=== PATIENT | male | born 1970 ===

== ENCOUNTER 2017-06-25 02:42 | Emergency (ER) | payer BC ==
[2017-06-25] MEDS ORDERED: Ketorolac 60 MG/2 ML SDV IM ONE (03:08)
[2017-06-25] MEDS ORDERED: Diphtheria,Pertussis(Acell),Tetanus Vaccine 0.5 ML Syringe IM ONE (03:08)
[2017-06-25] MEDS ORDERED: Bacitracin Oint 1 GM U/D Packet TOP ONE (03:09)
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
[2017-06-25 04:07] VITALS: BP 143/81
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
== END 2017-06-25 04:05 | disposition home or self-care (01) ==
LOC: MW.ED 02:42
DX: S40.029A Contusion of unspecified upper arm, initial encounter (principal); S80.10XA Contusion of unspecified lower leg, initial encounter; S80.212A Abrasion, left knee, initial encounter; S30.811A Abrasion of abdominal wall, initial encounter; S50.312A Abrasion of left elbow, initial encounter; S80.211A Abrasion, right knee, initial encounter; Z91.030 Bee allergy status; Z79.84 Long term (current) use of oral hypoglycemic drugs; Y04.2XXA Assault by strike against or bumped into by another person, initial encounter
CPT/HCPCS: 73562; 90471; 90715; 96372; 99284; J1885

== ENCOUNTER 2017-09-04 09:03 | Day surgery (SDC) | payer BC ==
[~2017-09-04 09:03] MED LIST: Acetaminophen/HYDROcodone 325-5 MG Tab PO PRN; Lactated Ringers 1,000 ML IV SCH; Lidocaine 1% 20 ML MDV ONE; ceFAZolin 2 GM in Premix Bag 1 BAG IV SCH
[2017-09-04] MEDS ORDERED: Ondansetron 4 MG/2 ML SDV ONE (09:52)
[2017-09-04] MEDS ORDERED: Midazolam 1 MG/ML 2 ML SDV ONE (09:52)
[2017-09-04] MEDS ORDERED: Propofol 200 MG/20 ML SDV ONE (09:52)
[2017-09-04] MEDS ORDERED: fentaNYL 100 MCG/2 ML SDV ONE ×2 (09:52→11:49)
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
[2017-09-04] MEDS ORDERED: Ketorolac 30 MG/ML SDV ONE (11:05)
[2017-09-04] MEDS ORDERED: Dexamethasone 4 MG/ML 5 ML MDV ONE (11:05)
--- NOTE | 2017-09-04 11:18 | PCM.OPNOTE ---
- General Post-Op/Procedure Note Date of Surgery/Procedure: 09/04/17 Operative Procedure(s): R knee arthroscopy with debridement of ACL (limited synovectomy) Post-Op Diagnosis: R knee ACL tear Anesthesia Technique: General LMA Primary Surgeon: Ana Arreguin Vocational Instructor: Manuel Weaver in mLs: 5 Condition: Good Free Text/Narrative:: tt=30 min #[id number]
[2017-09-04] MEDS ORDERED: Acetaminophen/oxyCODONE 325-5 MG Tab PO PRN (11:33)
[2017-09-04] MEDS: fentaNYL 100 MCG/2 ML SDV IVPUSH PRN ×4 (11:48→12:08)
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
[2017-09-04 13:01] VITALS: BP 126/79
== END 2017-09-04 13:25 | disposition home or self-care (01) ==
LOC: MW.SDS 09:03
PROVIDERS: ATTEND Orthopaedic Surgery
DX: S83.511A Sprain of anterior cruciate ligament of right knee, initial encounter (principal); M94.261 Chondromalacia, right knee; E11.9 Type 2 diabetes mellitus without complications; F17.210 Nicotine dependence, cigarettes, uncomplicated; K21.9 Gastro-esophageal reflux disease without esophagitis; J45.909 Unspecified asthma, uncomplicated; I10 Essential (primary) hypertension; E78.00 Pure hypercholesterolemia, unspecified; G47.33 Obstructive sleep apnea (adult) (pediatric); Y09 Assault by unspecified means; Z79.899 Other long term (current) drug therapy; Z91.030 Bee allergy status; Z68.41 Body mass index [BMI] 40.0-44.9, adult; Z98.890 Other specified postprocedural states; Z99.89 Dependence on other enabling machines and devices
CPT/HCPCS: 29877; A9270; J0690; J1100; J1885; J2250; J2405; J3010; J7120; 01400; 88304; J2704